=== PATIENT | female | born 1930 | race Caucasian/White ===

== ENCOUNTER 2017-06-22 22:11 | Inpatient (IN) | payer MEDICARE ==
[~2017-06-22] VITALS: Ht 149.9 cm; Wt 48.2 kg
[2017-06-22 22:54] LABS: BASOPHILS % (AUTO) 0.4 % (0.0-5.0); EOSINOPHILS % (AUTO) 0.1 % (0.0-8.0); HEMATOCRIT 33.5 % (36-48); MEAN CORPUSCULAR HEMOGLOBIN 32.3 pg (27.0-33.0); MEAN CORPUSCULAR HGB CONC 34.4 g/dL (32.0-36.0); MEAN CORPUSCULAR VOLUME 94.1 fL (79-99); MONOCYTES % (AUTO) 15.7 % (3.0-13.0); NEUTROPHILS % (AUTO) 74.8 % (40.0-77.0); NUCLEATED RED BLOOD CELLS 0.1 % (0.0-0.19); PLATELET COUNT (AUTO) 426 K/uL (130-400); RED BLOOD CELL COUNT(AUTO) 3.56 MIL/uL (4.00-5.50); RED CELL DISTRIBUTION WIDTH 14.1 % (11.0-15.5); WHITE BLOOD COUNT (AUTO) 5.5 K/uL (4.8-10.8)
[2017-06-22 22:58] LABS: APPEARANCE,URINE Cloudy (CLEAR); BILIRUBIN,URINE Negative (NEGATIVE); COLOR,URINE Yellow (YELLOW); GLUCOSE, URINE (UA) Negative (NEGATIVE); KETONES,URINE Trace mg/dL (NEGATIVE); LEUKOCYTE ESTERASE ,URINE Moderate (NEGATIVE); NITRATE,URINE Positive (NEGATIVE); OCCULT BLOOD,URINE Moderate (NEGATIVE); PROTEIN,URINE POS 1+ (NEGATIVE); UROBILINOGEN,URINE 0.2 mg/dL (0.2-1.0)
[2017-06-22] MEDS ORDERED: ASPIRIN 325 MG TABLET ONE (23:00)
[2017-06-22] MEDS ORDERED: BENZONATATE 100 MG CAPSULE PO ONE (23:00)
[2017-06-22] MEDS ORDERED: ACETAMINOPHEN 325 MG TAB ONE (23:01)
[2017-06-22 23:06] LABS: CARBON DIOXIDE 28 mmol/L (21-32); CHLORIDE 96 mmol/L (101-111); CREATININE 1.5 mg/dL (0.5-1.5); GLOMERULAR FILTR. RATE CALC 35 mL/min (>60); GLUCOSE,RANDOM 142 mg/dL (70-105); INR 0.98 (0.85-1.15); POTASSIUM 3.7 mmol/L (3.5-5.1); PROTHROMBIN TIME 10.3 SEC (9.6-11.6); SODIUM SERUM 132 mmol/L (136-145); UREA NITROGEN, BLOOD 25 mg/dL (7-18)
[2017-06-22 23:14] LABS: BACTERIA,URINE Many /HPF (None Seen); SQUAMOUS EPITHELIAL CELL,UR Moderate /LPF (0-2)
[2017-06-22] MEDS ORDERED: SODIUM CHLORIDE 0.9% 1000ML 1,000 ML IV ONE (23:14)
[2017-06-22] MEDS ORDERED: CEFTRIAXONE SODIUM 2 GM VIAL ONE (23:14)
[2017-06-22 23:20] LABS: ALANINE AMINOTRANSFERASE 17 U/L (12-78); ALBUMIN 3.4 g/dL (3.5-5.0); ASPARTATE AMINOTRANSFERASE 25 U/L (10-37); BILIRUBIN,TOTAL 0.4 mg/dL (0.2-1.0); CREATINE KINASE MB < 0.5 ng/mL (0.5-3.6); CREATINE KINASE, TOTAL 78 U/L (21-232); TOTAL PROTEIN, SERUM 7.6 g/dL (6.0-8.3)
[2017-06-22] MEDS ORDERED: IPRATROPIUM/ALBUTEROL SULFATE 3 ML SOLUTION IH ONE (23:21)
[2017-06-23] MEDS ORDERED: OSELTAMIVIR PHOSPHATE 75 MG CAP ONE ×2 (00:54→08:06)
[2017-06-23] MEDS ORDERED: ONDANSETRON HCL 4 MG/2 ML VIAL IV PRN (04:00)
[2017-06-23] MEDS ORDERED: HYDRALAZINE HCL 20 MG/ML VIAL IV PRN (04:00)
[2017-06-23] MEDS ORDERED: ACETAMINOPHEN 325 MG TAB PO PRN (04:00)
[2017-06-23] MEDS ORDERED: CEFTRIAXONE SODIUM 1 GM ONE (08:05)
[2017-06-23] MEDS ORDERED: FAMOTIDINE 20MG TAB 20 MG TAB ONE (08:06)
[2017-06-23 08:35] VITALS: BP 137/74
[2017-06-23] MEDS ORDERED: OSELTAMIVIR PHOSPHATE 300 MG, COMPOUNDING VEHICLE SF NO.9 50 ML PO SCH ×2 (09:00)
[2017-06-23] MEDS ORDERED: CEFTRIAXONE SODIUM 1 GM IVP SCH ×2 (09:00→21:00)
[2017-06-23] MEDS ORDERED: OSELTAMIVIR PHOSPHATE 75 MG CAP PO SCH (09:00)
[2017-06-23] MEDS: FAMOTIDINE 20MG TAB 20 MG TAB PO SCH (09:54)
[2017-06-23] MEDS: SODIUM CHLORIDE 0.9% 1000ML 1,000 ML IV SCH (09:55)
[2017-06-23] MEDS: CEFTRIAXONE SODIUM 1 GM IVP SCH (09:55)
[2017-06-23 11:00] VITALS: BP 130/53
[2017-06-23] MEDS ORDERED: COMPOUND PO MISCELLANEOUS 1 EACH MISC MISC PRN (11:00)
[2017-06-23] MEDS: OSELTAMIVIR PHOSPHATE 300 MG, COMPOUNDING VEHICLE SF NO.9 50 ML PO SCH ×2 (12:43)
[2017-06-23 16:00] VITALS: BP 141/67
[2017-06-23 20:00] VITALS: BP 130/64
[2017-06-23] MEDS: GUAIFENESIN-DM 200/20 MG 10 ML PO PRN (21:25)
[2017-06-24] VITALS: BP 154/72
[2017-06-24] MEDS: GUAIFENESIN-DM 200/20 MG 10 ML PO PRN (03:47)
[2017-06-24 04:00] VITALS: BP 146/54
[2017-06-24] MEDS: SODIUM CHLORIDE 0.9% 1000ML 1,000 ML IV SCH (04:48)
[2017-06-24 07:00] VITALS: BP 183/67
[2017-06-24] MEDS: FAMOTIDINE 20MG TAB 20 MG TAB PO SCH (10:00)
[2017-06-24] MEDS: CEFTRIAXONE SODIUM 1 GM IVP SCH (10:00)
[2017-06-24] MEDS: OSELTAMIVIR PHOSPHATE 300 MG, COMPOUNDING VEHICLE SF NO.9 50 ML PO SCH ×2 (10:15)
[2017-06-24] MEDS ORDERED: ALBU8.5H8 IH (10:30)
[2017-06-24] MEDS ORDERED: GUAIFDM PO (10:30)
[2017-06-24] MEDS ORDERED: OSEL75 PO (10:30)
[2017-06-24] MEDS ORDERED: CEFD300C3 PO (10:30)
[2017-06-24 11:00] VITALS: BP 136/65
== END 2017-06-24 13:15 | disposition home or self-care (01) | DRG 194 ==
LOC: EDH 22:11 → EDHIP 06-23 01:20 → 3BH 06-23 08:30
PROVIDERS: ADMIT Family Medicine; ATTEND Family Medicine
DX: J10.1 Influenza due to other identified influenza virus with other respiratory manifestations (principal); N39.0 Urinary tract infection, site not specified; E86.0 Dehydration; I10 Essential (primary) hypertension; E78.5 Hyperlipidemia, unspecified; J20.9 Acute bronchitis, unspecified; E78.00 Pure hypercholesterolemia, unspecified; Z90.49 Acquired absence of other specified parts of digestive tract; Z88.8 Allergy status to other drugs, medicaments and biological substances
CPT/HCPCS: 36415; 71046; 80053; 81001; 82550; 82553; 83605; 84484; 85025; 85610; 85730; 87040; 87088; 87186; 87804; 93005; 94640; 99291; A4218; J0696; J7030